=== PATIENT | female | born 1985 ===

== ENCOUNTER 2020-10-30 17:03 | Emergency (ER) | payer SELFPAY ==
[~2020-10-30] VITALS: Ht 162.6 cm; Wt 56.4 kg
[2020-10-30 17:23] VITALS: BP 110/77
== END 2020-10-30 17:54 | disposition left against medical advice (07) ==
LOC: EMS 17:03
DX: R05 Cough (principal); Z53.21 Procedure and treatment not carried out due to patient leaving prior to being seen by health care provider